=== PATIENT | male | born 1965 | race Caucasian/White ===

== ENCOUNTER 2016-10-31 15:05 | Emergency (ER) | payer OTHER ==
[~2016-10-31] VITALS: Ht 180.3 cm; Wt 93.9 kg
[~2016-10-31 15:05] MED LIST: CLONAZEPAM0.5 M2 PO; KEFLEX500 M1 PO; ULTRAM50 M1 PO
--- NOTE | 2016-10-31 15:46 | ED HEAD/FACIAL INJ COMPLAINT ---
History of Present Illness General Chief Complaint: General Adult Stated Complaint: SIB WALK-IN FOR EVAL/CAT SCAN Source: patient, old records Exam Limitations: no limitations Vital Signs & Intake/Output Vital Signs & Intake/Output Vital Signs Date Time Temp Pulse Resp B/P Pulse O2 O2 Flow FiO2 Ox Delivery Rate 10/31 1733 64 20 160/89 98 Room Air 10/31 1630 Room Air 10/31 1518 97.7 78 20 170/100 98 Room Air Allergies Coded Allergies: No Known Allergies (03/29/16) Reconcile Medications Ascorbic Acid (Vitamin C) (Unknown Strength) TABLET (Unknown Dose) PO DAILY SUPPLEMENT (Reported) [bmp] basic metabolic panel dx: hyponatremia, sodium 10/31/16: 122 Clonazepam 0.5 MG TABLET 1 TAB PO BID PAIN (Reported) Krill Oil (Unknown Strength) CAPSULE (Unknown Dose) PO DAILY SUPPLEMENT ( Reported) Quercetin Dihydrate (Unknown Strength) POWDER (Unknown Dose) PO DAILY SUPPLEMENT (Reported) Triage Note: PT TO ED C/O HEADACHE. STATES THIS AM HE WAS ON HIS TREADMILL AND FELL BACKWARDS, HITTING HIS HEAD ON THE FLOOR. STATES BRIEF LOC. PT WENT TO WALK-IN AND WAS ADVISED TO COME TO ED FOR CAT SCAN OF HEAD. PT DENIES N/V. PT HYPERTENSIVE 170/100. DENIES ANY PMH. APPEARS ANXIOUS. Triage Nurses Notes Reviewed? yes Onset: Gradual Severity: mild, moderate Severity Numbers: 5 Location: frontal Method of Injury: fall Loss of Consciousness: brief (seconds) Associated Symptoms: DENIES HPI: 50-year-old male with no known medical history presents emergency room for evaluation. The patient states that he was on the treadmill going at his normal pace around 6:15 this morning. He states that he had his cup of coffee prior to getting on the treadmill but did not have his water bottle with him. He states that about 10 minutes and he states that he passed out for "a second" and awoke at the base of the treadmill. Patient denies history of similar episodes in the past there is no prodromal chest pain palpitations dizziness or lightheadedness. He states that he did not eat anything prior to getting on the treadmill which she normally does not. He states he sat on the ground for a few minutes and got back up and continued running for another 20 minutes. He states since then he's a gradual onset of a generalized nonradiating headache since. Patient took Motrin without any improvement or he went to his chiropractor today who referred him to the ER for a CAT scan. He denies any vision changes nausea or vomiting. Denies any back Arm or leg pain (KILO KRISHNA) Past History Travel History Traveled to [place] past 21 day No Medical History Any Pertinent Medical History? see below for history Neurological: NONE EENT: NONE Cardiovascular: NONE Respiratory: NONE Gastrointestinal: NONE Hepatic: NONE Renal: NONE Musculoskeletal: NONE Psychiatric: NONE Endocrine: NONE Blood Disorders: NONE Cancer(s): NONE IT SOFTWARE ENGINEER/Reproductive: NONE Surgical History Surgical History: non-contributory Psychosocial History What is your primary language Armenian Tobacco Use: Never used ETOH Use: denies use Illicit Drug Use: denies illicit drug use Family History Hx Contributory? No (KILO KRISHNA) Review of Systems Review of Systems Constitutional: Reports: no symptoms, see HPI. All Other Systems: Reviewed and Negative Comments Review of systems: See HPI, All other systems negative. Constitutional, no chills no fever, no malaise HEENT: no sore throat no congestion Cardiovascular: No chest pain , no palpitation , Skin, no jaundice no rashes, no change in skin Respiratory: No dyspnea no cough no sputum GI: No nausea no vomiting, no diarrhea, no bloating/constipation : No dysuria No hematuria Muscle skeletal: No joint pain, no joint swelling, no back pain, no neck pain, Neurologic: No numbness headache Psych: No stress Heme/endocrine: No bruising no bleeding Immunology: No lymphadenopathy (KILO KRISHNA) Physical Exam Physical Exam General Appearance: well developed/nourished, alert, awake Cranial Nerves: normal hearing, normal speech, PERRL Comments: Well-developed well-nourished person in no acute distress HEENT: Normal EENT exam; PERRL, EOMI, no nystagmus. HEAD is atraumatic. moist mucous membranes. No abrasions or lacerations noted to the scalp ecchymosis Neck: Supple, no midline or paracervical tenderness normal range of motion without pain or tenderness Back: Nontender, no CVA tenderness. Full range of motion Cardiovascular: Regular rate and rhythms no murmurs rubs or gallops, normal JVP Respiratory: Chest nontender.There were no bony deformities, no asymmetry. No respiratory distress. Patient speaking in full complete sentences. Breath sounds clear to auscultation bilaterally: NO W/R/R Abdomen: Soft, nontender nondistendeD Extremity: No edema, full range of motion of extremities 5 out of 5 strength noted to bilateral upper and lower extremities Neuro: Alert oriented x3, motor sensory normal, cranial nerves II through XII grossly intact. There were no obvious focal neurologic abnormalities. Skin: No appreciable rash on exposed skin, skin is warm and dry. Psych: Mood and affect is normal, memory and judgment is normal. (KATHRYN LOCKE,KILO) Progress Differential Diagnosis: c-spine injury, facial fracture, globe injury, ICH, orbit fracture, skull fracture, AMI, ARRTHYMIA, ELECTROLYTE ABNORAMLITY, DEHYDRATION, valvular disorder Plan of Care: Orders Procedure Date/time Status TROPONIN LEVEL 10/31 1609 Complete COMPREHENSIVE METABOLIC PANEL 10/31 161 Complete CBC WITHOUT DIFFERENTIAL 10/31 1609 Complete EKG 10/31 161 Active Current Medications Sig/Jane Start time Last Medication Dose Stop Time Status Admin Famotidine 20 MG ONCE ONE 10/31 161 CAN (Pepcid) 10/31 1616 Laboratory Tests 10/31/16 1647: Anion Gap 10, Estimated GFR > 60, BUN/Creatinine Ratio 14.3, Glucose 81, Calcium 9.3, Total Bilirubin 2.0 H, AST 58, ALT 81 H, Alkaline Phosphatase 102, Troponin I < 0.01, Total Protein 6.6, Albumin 4.0, Globulin 2.6, Albumin/ Globulin Ratio 1.5, CBC w Diff NO MAN DIFF REQ, RBC 4.73, MCV 82.3, MCH 27.6, RDW 13.6, MPV 9.4, Gran % 78.1 H, Lymphocytes % 13.9 L, Monocytes % 6.2, Eosinophils % 1.6, Basophils % 0.2, Absolute Granulocytes 9.4 H, Absolute Lymphocytes 1.7, Absolute Monocytes 0.7 H, Absolute Eosinophils 0.2, Absolute Basophils 0, PUBS MCHC 33.[address]. PT MEDICATED WITH TYLENOL PO TAMPA Patient IS in the low-risk group for serious outcome. Case discussed with Dr. Gooden 10/31/2016 5:43:20 PM discussed the patient is CAT scan and lab results today pending troponin patient feels improved with Tylenol LABS AND CASE D/W DR GOODEN agrees with plan iv NS 1 liter ordered I discussed with the patient at length all his lab results, and his elevated blood pressure here in the department patient has no history of elevated high blood pressure he is very anxious. Discussed with patient need for close follow -up with his primary care physician as well as cardiology discussed with him the need to abstain from athletic strenuous activity until cleared by his primary care or cardiology this week, patient will follow up on Thursday for repeat sodium level given hyponatremia today which I believe is most likely dilutional given the patient states that he drinks excessive amounts of water. Advised return anytime sooner if any concerns. It once again discussed with patient HIS lab results he feels comfortable this plan ambulatory with steady gait, answered all their questions cleared for discharge (KATHRYN LOCKE,KILO) Diagnostic Imaging: Viewed by Me: CT Scan. Discussed w/RAD: CT Scan. Radiology Impression: PATIENT: ELY RAMIREZ PRESENT AGE: 50 PATIENT ACCOUNT NO: [id number] : 64 LOCATION: [facility] ORDERING PHYSICIAN: KILO LOCKE SERVICE DATE: 10/31/16 EXAM TYPE: CAT - CT CERV SPINE WO IV CONTRAST; CT HEAD WO IV CONTRAST EXAMINATION: CT HEAD AND CERVICAL SPINE. CLINICAL INFORMATION: Headache status post fall from treadmill. Evaluate for acute intracranial hemorrhage. COMPARISON: No prior imaging is available. TECHNIQUE: [employer] images were obtained. CT acquisition of the head and cervical spine was performed without intravenous administration of contrast. Data was reformatted into multiplanar images at the acquisition workstation. DLP: 995.39 mGy-cm. FINDINGS: Head: There is no acute cranial hemorrhage or abnormal extra axial collection. No intracranial mass effect or midline shift. Lateral and third ventricles are normal. No hydrocephalus. Vicente- white matter differentiation is preserved and there is no evidence of acute territorial infarct. The calvarium and skull base are intact. Mastoid air cells and middle ear cavities are well aerated. Visualized paranasal sinuses are well- aerated. Cervical spine: There is nonspecific straightening of the cervical lordosis. Vertebral alignment is otherwise maintained in the sagittal dimension. Vertebral body heights are preserved. There is no acute fracture. No abnormal prevertebral soft tissue swelling. The atlantodental joint is intact. Lateral C1 masses are intact. There is degenerative disc space narrowing with associated sclerotic degenerative endplate changes at multiple levels within the cervical spine. Uncovertebral joint spurring causes no more than mild right neuroforaminal encroachment at C5-C6 and mild bilateral neuroforaminal encroachment at C6-C7 and C7-T1. Soft tissues of the neck including the thyroid gland are unremarkable. Lung apices are clear. IMPRESSION: Head: No acute intracranial hemorrhage. Cervical spine: There is multilevel degenerative spondylosis of the cervical spine. No acute fracture or traumatic subluxation. DICTATED BY: ISAIAS DUBOIS MD DATE/TIME DICTATED:10/31/[address]17[address] ST[address] SUPERVISOR:NORY DATE/TIME TRANSCRIBED:10/31/161700 CONFIDENTIAL, DO NOT COPY WITHOUT APPROPRIATE AUTHORIZATION. <Electronically signed in Other Vendor System> SIGNED BY: ISAIAS DUBOIS MD 10/31/161715 Rhythm Strip: normal sinus rhythm (KILO KRISHNA) Departure Departure Time of Disposition: 1802 Disposition: HOME OR SELF CARE Condition: Stable Clinical Impression Primary Impression: Concussion Secondary Impressions: Hyponatremia, Syncope Referrals: PATIENT HAS NO PRIMARY CARE DR (PCP) SIRIA WITT,Rochelle RODRIGEZ Additional Instructions: follow up with your pmd as well as survey director dr avalos on thursday. As discussed her sodium level was low here he will require repeat what testing early next week as well as close follow-up with your primary care physician for the same. limit excessive caffeine and water drinking- drink more liquids wtih electrolytes in them. Abstain from athletic, strenuous activity until cleared by cardiology. Brain rest as discussed limit TV, cellphonecomputer usage [id number] every 8 hours or Ibuprofen 800mg every 8 hours as needed for your headache. Follow up with your primary care physician on Thursday return at anytime sooner if any concerns Departure Forms: Customer Survey General Discharge Information Prescriptions: Current Visit Scripts [bmp] (KILO KRISHNA) Departure Comments Case discussed with me. Patient had been drinking copious amounts of water after the event. He was instructed not to continue this. He will have the serum sodium repeated. Since Trevor syncope rules negative. PA/PAPER BAG MAKER Co-Sign Statement Statement: ED Attending supervision documentation- [] I saw and evaluated the patient. I have also reviewed all the pertinent lab results and diagnostic results. I agree with the findings and the plan of care as documented in the PA's/PAPER BAG MAKER's documentation. [X] I have reviewed the ED Record and agree with the PA's/PAPER BAG MAKER's documentation. [] Additions or exceptions (if any) to the PAs/PAPER BAG MAKER's note and plan are summarized below: [] (JEANCARLOS GOODEN DO)
[2016-10-31] MEDS ORDERED: VITAMIN C500 M8 PO (16:57)
[2016-10-31] MEDS ORDERED: KRILL OIL500 MG PO (16:58)
[2016-10-31] MEDS ORDERED: QUERCETIN DIHYDR1 GM PO (16:58)
[2016-10-31 17:07] LABS: ABSOLUTE BASOPHIL COUNT 0 /CUMM (0.0-0.2); ABSOLUTE EOSINOPHIL COUNT 0.2 /CUMM (0.0-0.7); ABSOLUTE GRANULOCYTE CT 9.4 /CUMM (1.4-6.5); ABSOLUTE LYMPH COUNT 1.7 /CUMM (1.2-3.4); ABSOLUTE MONOCYTE COUNT 0.7 /CUMM (0.10-0.60); BASOPHIL % 0.2 % (0.0-2.0); EOSINOPHIL % 1.6 % (0-5); GRANULOCYTE % 78.1 % (42.2-75.2); HEMATOCRIT 38.9 % (42-52); MEAN CORPUSCULAR HGB 27.6 PG (27.0-31.0); MEAN CORPUSCULAR HGB CONC 33.5 G/DL (33.0-37.0); MEAN CORPUSCULAR VOLUME 82.3 FL (80.0-94.0); MEAN PLATELET VOLUME 9.4 FL (7.4-10.4); PLATELET COUNT 220 /CUMM (130-400); RBC DISTRIBUTION WIDTH 13.6 % (11.5-14.5); RED BLOOD CELL CT 4.73 /CUMM (4.70-6.10)
--- NOTE | 2016-10-31 17:16 | CT SCAN REPORT ---
EXAMINATION: CT HEAD AND CERVICAL SPINE. CLINICAL INFORMATION: Headache status post fall from treadmill. Evaluate for acute intracranial hemorrhage. COMPARISON: No prior imaging is available. TECHNIQUE: Creative Services Designer images were obtained. CT acquisition of the head and cervical spine was performed without intravenous administration of contrast. Data was reformatted into multiplanar images at the acquisition workstation. DLP: 995.39 mGy-cm. FINDINGS: Head: There is no acute cranial hemorrhage or abnormal extra axial collection. No intracranial mass effect or midline shift. Lateral and third ventricles are normal. No hydrocephalus. Vicente-white matter differentiation is preserved and there is no evidence of acute territorial infarct. The calvarium and skull base are intact. Mastoid air cells and middle ear cavities are well aerated. Visualized paranasal sinuses are well-aerated. Cervical spine: There is nonspecific straightening of the cervical lordosis. Vertebral alignment is otherwise maintained in the sagittal dimension. Vertebral body heights are preserved. There is no acute fracture. No abnormal prevertebral soft tissue swelling. The atlantodental joint is intact. Lateral C1 masses are intact. There is degenerative disc space narrowing with associated sclerotic degenerative endplate changes at multiple levels within the cervical spine. Uncovertebral joint spurring causes no more than mild right neuroforaminal encroachment at C5-C6 and mild bilateral neuroforaminal encroachment at C6-C7 and C7-T1. Soft tissues of the neck including the thyroid gland are unremarkable. Lung apices are clear. IMPRESSION: Head: No acute intracranial hemorrhage. Cervical spine: There is multilevel degenerative spondylosis of the cervical spine. No acute fracture or traumatic subluxation.
[2016-10-31 17:33] VITALS: BP 160/89
[2016-10-31] MEDS ORDERED: [UNRECOGNIZED DRUG - OTHER] (18:06)
== END 2016-10-31 19:52 ==
LOC: ERH 15:05
PROVIDERS: Physician Assistant Medical
DX: S06.0X9A Concussion with loss of consciousness of unspecified duration, initial encounter (principal); R55 Syncope and collapse; E87.1 Hypo-osmolality and hyponatremia; W19.XXXA Unspecified fall, initial encounter
CPT/HCPCS: 93005; 93010; 96360